=== PATIENT | male | born 1960 | race Caucasian/White ===

== ENCOUNTER 2019-04-25 09:27 | Emergency (ER) | payer BC ==
[~2019-04-25] VITALS: Ht 180.3 cm; Wt 119.1 kg
[2019-04-25 09:28] VITALS: BP 164/76
[2019-04-25] MEDS ORDERED: AMIO200T PO (09:38)
[2019-04-25] MEDS ORDERED: AMIODARONE 200 MG TAB (PACERONE) PO ONE (10:30)
[2019-04-25] MEDS ORDERED: PACE200T PO (10:32)
== END 2019-04-25 10:45 | disposition home or self-care (01) ==
LOC: M ED 09:27
DX: Z76.0 Encounter for issue of repeat prescription (principal); I10 Essential (primary) hypertension; E78.5 Hyperlipidemia, unspecified; Z79.899 Other long term (current) drug therapy; Z95.5 Presence of coronary angioplasty implant and graft; Z87.891 Personal history of nicotine dependence; Z86.79 Personal history of other diseases of the circulatory system; Z88.0 Allergy status to penicillin